=== PATIENT | female | born 1945 | race Caucasian/White ===

== ENCOUNTER → 2016-07-23 | Outpatient (CLI) | payer BC ==
[~2016-07-23] MED LIST: FRRG PO; GLUCTAB7 PO; HYDR25TA4 PO; LORA10TA5 PO; MULTTAB58 PO; NCYSR50 PO; NZRCR TOP; OMEG-27 PO; REDCAP2 PO; WARF3TAB PO; [UNRECOGNIZED DRUG - OTHER] TOP
== END | disposition home or self-care (01) ==
LOC: C.PAPS 15:19
PROVIDERS: ATTEND Obstetrics & Gynecology
DX: Z01.419 Encounter for gynecological examination (general) (routine) without abnormal findings (principal)

== ENCOUNTER → 2016-08-29 | Outpatient (CLI) | payer BC ==
--- NOTE | 2016-08-29 13:04 | MAMMOGRAPHY REPORT ---
BILATERAL DIGITAL SCREENING MAMMOGRAM WITH CAD: 08/29/2016 CLINICAL HISTORY: Routine screening. TECHNIQUE: Bilateral CC and MLO views were obtained. Current study was also evaluated with a Compute r Aided Detection (CAD) system. COMPARISON: Comparison is made to exams dated: 08/17/2015 mammogram, 08/04/2014 mammogram, 06/29/2013 ma mmogram, 04/21/2012 mammogram, 04/13/2011 mammogram, and 04/11/2010 mammogram - [facility]. BREAST COMPOSITION: The tissue of both breasts is heterogeneously dense, which may obscure small mas ses. FINDINGS: An 8 mm asymmetry in the far superior right breast on the MLO view appears very similar on all available prior mammograms dating back to at least 02/27/2007, therefore likely benign. There ar e a few scattered stable benign-appearing round microcalcifications in the breasts. No new suspiciou s mass, architectural distortion or cluster of microcalcifications is seen. IMPRESSION: ACR BI-RADS CATEGORY 1: NEGATIVE There is no mammographic evidence of malignancy. A 1 year screening mammogram is recommended. The pa tient will receive written notification of the results. Approximately 10% of breast cancers are not detected with mammography. A negative mammographic report should not delay biopsy if a clinically suggestive mass is present. Pennie Anaya M.D. ay/:08/29/2016 12:43:54 Director Market Intelligence: Huy VELÁZQUEZ)(Ema), [facility] letter sent: Normal 1/2 BI-RADS Code: ACR BI-RADS Category 1: Negative
== END | disposition home or self-care (01) ==
LOC: C.MAMM 11:49
PROVIDERS: ATTEND Obstetrics & Gynecology
DX: Z12.31 Encounter for screening mammogram for malignant neoplasm of breast (principal)

== ENCOUNTER → 2016-10-28 | Outpatient (CLI) | payer BC ==
[2016-10-28 13:55] LABS: BASO % 0.3 %; BASO ABS # 0.03 K/uL (0-0.2); COMPLETE YES; EOS % 1.2 %; HEMATOCRIT 39.9 % (37-47); IG% 0.3 %; LYMPH % 17.5 %; LYMPH ABS # 1.81 K/uL (1.2-3.4); MEAN CELL VOLUME 86.2 fL (80-100); MEAN CORPUSCULAR HEMOGLOBIN 29.6 pg (25-34); MEAN CORPUSCULAR HGB CONC 34.3 g/dl (32-36); MEAN PLATELET VOLUME 10.9 fL (7.4-10.4); MONO % 8.1 %; NEUT % 72.6 %; PLATELET COUNT 192 K/uL (130-400); RED BLOOD COUNT 4.63 M/uL (4.2-5.4); WHITE BLOOD COUNT 10.33 K/uL (4.8-10.8)
[2016-10-28 14:19] LABS: ALT/SGPT 20 U/L (12-78); AST/SGOT 10 U/L (15-37); BLOOD UREA NITROGEN 18 mg/dl (7-18); BUN/CREATININE RATIO 18.3 (10-20); CALCIUM 9.2 mg/dl (8.5-10.1); CARBON DIOXIDE 30 mmol/L (21-32); CHLORIDE 104 mmol/L (98-107); CREATININE 0.96 mg/dl (0.60-1.20); GLUCOSE 89 mg/dl (70-99); SODIUM 139 mmol/L (136-145)
[2016-10-28 14:22] LABS: ALB/GLOB RATIO 0.7 (0.9-2); ALKALINE PHOSPHATASE 90 U/L (45-117)
--- NOTE | 2016-10-28 14:55 | DIAGNOSTIC IMAGING REPORT ---
PELVIS NO IV/ORAL CONT (CT) HISTORY: 71 years-old Female acute left lower quadrant abdominal pain COMPARISON: None available TECHNIQUE: Multiple axial CT images of the pelvis were obtained without contrast. A dose lowering technique was used consistent with the principals of ADILSON. FINDINGS: There is asymmetric wall thickening of the left aspect urinary bladder lumen. Uterus appears age appropriate. Adnexa are unremarkable. There is moderate wall thickening of the mid sigmoid colon circumferentially with inflammation extending around multiple diverticular tics. There is moderate associated inflammation of the adjacent mesocolon with thickening of the peritoneal reflections. There is no evidence of associated abscess or perforation at this time. The terminal ileum and appendix appear normal. Soft tissues are unremarkable. Discogenic degeneration with annular disc bulging is seen at L5-S1. There is facet arthropathy of the lower lumbar spine. IMPRESSION: 1. Findings compatible with acute uncomplicated sigmoid diverticulitis with moderate associated inflammation within the adjacent mesocolon. 2. Asymmetric thickening of the urinary bladder wall on the left is likely reactive. Correlate with urinalysis to exclude cystitis. The above report was generated using voice recognition software. It may contain grammatical, syntax or spelling errors. Electronically signed by: Woody Hilton M.D. 10/28/2016 2:54 PM Dictated Date/Time: 10/28/2016 2:50 PM
== END | disposition home or self-care (01) ==
LOC: C.LAB 13:19
PROVIDERS: ATTEND Student in an Organized Health Care Education/Training Program
DX: R10.32 Left lower quadrant pain (principal)

== ENCOUNTER 2022-02-09 08:14 | Observation (INO) ==
--- NOTE | 2022-01-29 11:47 | PAT Medication Instructions ---
Medication Instructions Date of Service January 29, 2022 Home Medications aspirin 81 mg tablet,delayed release 81 mg PO QAM atorvastatin 10 mg tablet 10 mg PO HS taglueudthl-aclbafwox-fwk C-Mn 500 mg-400 mg capsule (Glucosamine Chondroitin Maximum Strength) 2 cap PO QAM ibuprofen 200 mg tablet 200 mg PO Q6H PRN loratadine 10 mg tablet 10 mg PO QAM multivitamin 1 tab PO QAM Vitamin D3 1 cap PO QAM amoxicillin 500 mg tablet 2,000 mg PO UD betamethasone dipropionate 0.05 % topical cream 1 applic topical BID PRN escitalopram oxalate 5 mg tablet 5 mg PO QAM estradiol 0.01% (0.1 mg/gram) vaginal cream 1 g vaginal Q3D metronidazole 1 % topical cream 1 applic topical BID valacyclovir 500 mg tablet (Valtrex) 1,000 mg PO BID PRN Continue as directed amoxicillin 500 mg tablet 2,000 mg PO UD ASK your surgeon for instructions ibuprofen 200 mg tablet 200 mg PO Q6H PRN ASK your prescriber and surgeon aspirin 81 mg tablet,delayed release 81 mg PO QAM STOP taking 2 weeks before surgery vcivjcorldi-lkfrhjrwr-fyn C-Mn 500 mg-400 mg capsule (Glucosamine Chondroitin Maximum Strength) 2 cap PO QAM STOP taking 24 hours before surgery betamethasone dipropionate 0.05 % topical cream 1 applic topical BID PRN estradiol 0.01% (0.1 mg/gram) vaginal cream 1 g vaginal Q3D metronidazole 1 % topical cream 1 applic topical BID DO NOT take the morning of surgery loratadine 10 mg tablet 10 mg PO QAM multivitamin 1 tab PO QAM Vitamin D3 1 cap PO QAM Take morning of surgery With a small sip of water, OTHERWISE NOTHING TO EAT OR DRINK AFTER MIDNIGHT: escitalopram oxalate 5 mg tablet 5 mg PO QAM valacyclovir 500 mg tablet (Valtrex) 1,000 mg PO BID PRN(if needed) Take evening before surgery atorvastatin 10 mg tablet 10 mg PO HS valacyclovir 500 mg tablet (Valtrex) 1,000 mg PO BID PRN Other Notes If you have any questions please call us at [phone] or [phone] or [phone] or [phone]
--- NOTE | 2022-02-01 14:19 | Anesthesiology Consultation ---
Date of Service February 01, 2022 Assessment & Plan (1) Encounter for pre-operative examination: - pt/family concern dehydration, requesting drinking water up to 8 hours prior to surgery: Case discussed in detail with Dr. Gutierrez who advised pt needs to remain NPO from midnight before surgery on, and pt to notify pre-op team upon presenting to hospital for surgery, they can administer additional IV fluid which will be more efficacious than oral intake, avoid sleep reduction and issue if surgery time is changed, which will also assist optimization for shahana- operative course. He advised no further evaluation or testing needed prior to surgery. Pt made aware, she states will discuss above to pre-op team, expressed appreciation for call and denied additional questions or concerns. - anesthesia complication: see above under anesthesia problem from 2013 and concern for arrhythmias suspected to be combination effect of fentanyl and opioids. Pt and daughter state were advised at that time suspicion dehydration was an additional component. - potential difficult intubation: limited cervical spine extension. Chart Review Chart Review: Acceptable Risk for Surgery and Patient seen in Pre Admission Testing Teaching & Discussion Pre-Anesthesia Teaching/Discussion Notes: Instructed NPO after midnight before surgery, except medications with 15 cc of water. Medication instructions provided according to the PAT guidelines. History Surgery Operation Date: 02/09/22 12:00 Proposed Procedures p Anterior Colporrhaphy, Insertion of Cystocath - Imer Marshall MD Height/Weight Height: 5 ft 6 in Weight: 66.224 kg Allergies Allergy/AdvReac Type Severity Reaction Status Date / Time formaldehyde Allergy Unknown Rash Verified 01/30/22 13:43 shellfish derived Allergy Unknown N/V Verified 01/30/22 13:43 tixocortol Allergy Unknown Rash Verified 01/30/22 13:43 Medications Home Medications Medication Instructions Recorded Confirmed Last Taken aspirin 81 mg tablet,delayed 81 mg PO QAM 11/18/20 01/29/22 11/18/20 release atorvastatin 10 mg tablet 10 mg PO HS 11/18/20 01/29/22 11/17/20 ntuntrhvfxh-lvbtkfjgd-zdj C-Mn 500 2 cap PO QAM 11/18/20 01/29/22 Unknown mg-400 mg capsule (Glucosamine Chondroitin Maximum Strength) ibuprofen 200 mg tablet 200 mg PO Q6H PRN Pain 11/18/20 01/29/22 11/18/20 07:00 200 mg loratadine 10 mg tablet 10 mg PO QAM 11/18/20 01/29/22 11/18/20 multivitamin 1 tab PO QAM 11/18/20 01/29/22 11/18/20 Vitamin D3 1 cap PO QAM 01/29/22 01/29/22 Unknown amoxicillin 500 mg tablet 2,000 mg PO UD 01/29/22 01/29/22 Unknown betamethasone dipropionate 0.05 % 1 applic topical BID PRN eczema 01/29/22 01/29/22 Unknown topical cream escitalopram oxalate 5 mg tablet 5 mg PO QAM 01/29/22 01/29/22 Unknown estradiol 0.01% (0.1 mg/gram) 1 g vaginal Q3D 01/29/22 01/29/22 Unknown vaginal cream metronidazole 1 % topical cream 1 applic topical BID 01/29/22 01/29/22 Unknown valacyclovir 500 mg tablet 1,000 mg PO BID PRN Cold Sores 01/29/22 01/29/22 Unknown (Valtrex) Past Medical History Medical History (Updated 02/02/22 @ 09:15 by Melvi Chisholm PA-C) Anxiety Cystocele Diverticulosis hx diverticulitis 18 yrs ago Eczema GERD (gastroesophageal reflux disease) rare, prn antacid History of COVID-19 Late August/early September 2021 (home test), symptoms at time: insomnia, anxiety, memory loss > resolved (w/lexapro) Hx of seasonal allergies Hyperlipidemia Hypertension in past during stressful events, medications d/c 5 yrs ago Potential difficult airway on pre-intubation assessment limited cervical spine extension ROM Patient denies h/o stroke, seizures, heart attack, heart failure, DM, blood clots or blood transfusions. Exercise / Class Metabolic Activity II 4-5 Yardwork/Stairs/Walk up hill (denies CP or SOB with 1 FOS) Past Surgical History Surgical History History of anesthesia problem Patient had Left TKA done 04/10/13 at [facility]. Post-op cardio consult- per note 04/11/13, patient had post anesthesia/surgery first degree AVB, [place] and 3 second pause. "Likely all this is related to Fentanyl and narcotics.. At this point I do not believe a pacemaker is indicated.. I would avoid beta blockers at this point.. The other possibility is some degree of sleep apnea contributing. She does not that she snores, but denies significant daytime somnolence." Cardiology progress note on 04/12/13, "Nothing on monitor over last 24 hours.. NE looks back to baseline.. No hx syncope.. OR record reviewed--just propofol and versed with spinal.. ok to floor--will arrange outpatient monitor for one month upon d/c" History of left knee replacement History of repair of rectocele Hx of cataract extraction R/L Hx of colonoscopy Hx of hernia repair Hx of total hysterectomy with removal of both tubes and ovaries Past Anesthesia History No Family Hx of Anesthesia Complications and Other (see above anesthesia complication) History of PONV No Hx of PONV and No Hx of Motion Sickness Social History Smoking Status: Never smoker Do You Dip or Chew Tobacco: No Hx Alcohol Use: No Hx Substance Use: No substance use type: does not use Review of Systems Denies snoring or witnessed apneas. Patient denies chest pain, shortness of breath, dyspnea on exertion, fever, chills, cough, wheezing, presyncope or palpitations. Physical Exam Vital Signs Vitals BP 142/81 P 65 TEMP 98.3 SP02 99% on RA RESP 18 Physical Mild limitation of cervical extension range of motion without pain TMD 3.5 finger breadths Mallampati Score 2 Dentition: intact, several crowns; denies chipped or loose teeth, Lungs: normal respiratory effort. Clear throughout to auscultation, no adventitious breath sounds Cardiac: regular rate and rhythm, no murmurs noted Carotid arteries: negative bruit bilat Lab Results Anesthesia Preop Results Results Anesthesia Widget: WBC 7.38 K/ul (4.8-10.8) 02/01/22 Hgb 13.3 g/dl (12.0-16.0) 02/01/22 Hct 39.2 % (34.1-44.9) 02/01/22 Plt K/uL (130-400) 02/01/22 PT 10.9 Seconds (9.0-12.0) 02/01/22 PTT 25.5 Seconds (21.0-31.0) 02/01/22 INR 1.0 (0.9-1.1) 02/01/22 Blood Type A Positive 02/01/22 Antibody Screen NEGATIVE 02/01/22 Testing Laboratory Results 12/29/2021 SODIUM: 139 POTASSIUM: 4.2 CHLORIDE: 104 CO2: 29 BUN: 25 CREATININE: 1.05 GLUCOSE: 102 Electrocardiogram Date: 02/01/22 NSR, rate 61 bpm COVID-19 Risk Screen Screening Information COVID-19 Screen Date: 02/01/22 Exposure 21 Days Family/Household +COVID Last 21 Days: No Exposure 10 Days Any COVID Exposure Last 10 Days: No Symptoms Last 10 Days Experienced COVID Sx Last 10 Days: No + COVID 0-90 Days COVID + in Last 0-90 Days: No
[~2022-02-09 08:14] MED LIST changes: -FRRG PO; -GLUCTAB7 PO; -HYDR25TA4 PO; +LACTATED RINGER'S 1,000 ML IV SCH; +LIDOCAINE 2% MPF LOCAL 5 ML VIAL INFIL ONE; -LORA10TA5 PO; +LR 15ML/HR IV SCH; -MULTTAB58 PO; -NCYSR50 PO; -NZRCR TOP; -OMEG-27 PO; +ONDANSETRON INJ 2 MG/ML 2 ML VIAL ONE; +PROPOFOL IV EMULSION 10 MG/ML 20 ML VIAL IV ONE; -REDCAP2 PO; -WARF3TAB PO; -[UNRECOGNIZED DRUG - OTHER] TOP; +cefOXitin 2,000 MG in DEXTROSE 5% 50 ML IV SCH; +fentaNYL citrate 100 MCG/2 ML VIAL ONE
--- NOTE | 2022-02-09 09:10 | History & Physical Bridge Note ---
Date of Service February 09, 2022 History & Physical Bridge Note I have examined the patient, reviewed the History & Physical and in the interval since the performance of the History & Physical I have noted the following changes of clinical significance: no changes noted
[2022-02-09] MEDS ORDERED: MoRPHine SULFATE PF 1 MG/ML 10 ML AMP/VIAL ONE (09:20)
[2022-02-09] MEDS ORDERED: LIDOCAINE 1%/EPINEPHRINE 1:100,000 50 ML VIAL ONE (09:24)
[2022-02-09] MEDS ORDERED: NEOMYCIN/POLYMYX/BACITR OINT 15 GM TUBE ONE (09:34)
[2022-02-09] MEDS ORDERED: PREMARIN VAG CRM 14 APPLN/30 GM TUBE ONE (09:36)
[2022-02-09] MEDS ORDERED: NALOXONE HCL 0.08 MG in SYRINGE 1.8 ML IV PRN (09:40)
[2022-02-09] MEDS ORDERED: NALOXONE HCL 0.4 MG/1 ML VIAL/CARP IV PRN (09:40)
[2022-02-09] MEDS ORDERED: ONDANSETRON INJ 2 MG/ML 2 ML VIAL IV PRN (09:40)
[2022-02-09] MEDS ORDERED: diphenhydrAMINE 50 MG/ML VIAL IV PRN (09:40)
[2022-02-09] MEDS ORDERED: LACTATED RINGER'S 500 ML IV PRN (09:40)
[2022-02-09] MEDS ORDERED: MoRPHine SULFATE PF 1 MG/ML 10 ML AMP/VIAL INT SPINAL ONE (09:40)
[2022-02-09] MEDS ORDERED: ePHEDrine sulfate 50 MG/ML AMP IV PRN (09:40)
[2022-02-09] MEDS ORDERED: MEPERIDINE HCL 25 MG/ML CARP/VIAL IV PRN (09:40)
[2022-02-09] MEDS ORDERED: NALOXONE HCL 1 MG in SODIUM CHLORIDE 0.9% 1000ML 1,000 ML IV PRN (09:40)
[2022-02-09] MEDS ORDERED: NALBUPHINE HCL INJ 10 MG/ML AMP IV PRN (09:40)
[2022-02-09] MEDS ORDERED: SODIUM CHLORIDE 0.9% 1000ML 1,000 ML IV SCH (09:45)
[2022-02-09] MEDS ORDERED: NO NARCOTICS OR SEDATIVES SCH (09:45)
[2022-02-09] MEDS ORDERED: ROCURONIUM BROMIDE 10 MG/ML 5 ML VIAL IV ONE (10:14)
[2022-02-09] MEDS ORDERED: DEXAMETHASONE SOD INJ 4 MG/ML VIAL ONE (10:14)
[2022-02-09] MEDS ORDERED: ePHEDrine sulfate 50 MG/ML AMP ONE (11:27)
[2022-02-09] MEDS ORDERED: GLYCOPYRROLATE 0.2 MG/ML VIAL ONE (11:41)
[2022-02-09] MEDS ORDERED: NEOSTIGMINE METHYLSULFATE 1 MG/ML 10ML VIAL ONE (11:41)
[2022-02-09] MEDS ORDERED: fentaNYL citrate 100 MCG/2 ML VIAL ONE (11:43)
--- NOTE | 2022-02-09 11:56 | Post Operative Brief Note ---
Immediate Post Op Note v1 Date of Surgery February 09, 2022 Pre & Post Diagnosis Operation Date: 02/09/22 09:40 Pre-Op Diagnosis: Cystocele Post-Op Diagnosis: Cystocele I identified the patient and participated in the time-out.: Yes Procedure Operation Date: 02/09/22 09:40 Actual Procedures p Anterior Colporrhaphy, Insertion of Cystocath, repair of bladder. - Imer Marshall MD Surgeon Imer Marshall MD Forging Die Finisher none Estimated Blood Loss 30 Findings Consistent with Post-Op Diagnosis Drains Suprapubic Catheter Anesthesia Type General
--- NOTE | 2022-02-09 12:57 | Operative Report (OR) ---
DATE OF PROCEDURE: 02/09/2022. PROCEDURE PERFORMED: This is an operative notation of a cystocele repair, insertion of suprapubic ca theter. INDICATIONS FOR SURGERY: Mass protruding from the vagina on coughing, sneezing or straining. PREOPERATIVE DIAGNOSIS: Symptomatic cystocele. POSTOPERATIVE DIAGNOSIS: Symptomatic cystocele. Pathology pending. SURGEON: Kevin Marshall MD. ESTIMATED BLOOD LOSS: 30 mL. ANESTHESIA: General with spinal narcotics. OPERATIVE FINDING AND PROCEDURE: The patient was brought to the OR table. She had spinal narcotics placed. She was then placed under general anesthesia. A vaginal prep was done with Betadine preppin g the vagina, perineum, and suprapubic area. The procedure was started by grasping the anterior vagi na, a centimeter from the external urethral meatus with an Allis and then infiltrating the midline of the bladder right up to the vaginal cuff. There was a lot of redundant bladder due to the cystocele . After the area was infiltrated with local with epinephrine, I used a knife to make an initial inci dee dee and then used the Baby Simran to dissect the bladder off the anterior vaginal mucosa and this diss ection was taken right up to the vaginal cuff, which could be identified by the dimples on either alejandro e. Following this, I used T clamps to dissect off the anterior vaginal mucosa. I did a thin dissect ion, removing just a thin layer of anterior vaginal mucosa from the external urethral meatus right up to the cuff on the right side, the left side. Then, I dissected around the bladder neck into the sp inal area of the pelvis. I then plicated the excess vaginal mucosa with interrupted fvlpux-hn-kbszs sutures of Vicryl. This started a centimeter from the external urethral meatus and went right down t o the cuff. We then did a second layer and this reduced most of the hernia sac. We made sure that t he hernia sac was completely closed at the top and also well anchored to the posterior vaginal mucosa at the top. I then used additional support to support the urethrovesical angle first by using heavy chromic and going out lateral on the patient's left side and then on the right side and then pulling para vaginal tissue under the urethrovesical angle and tying it together in a U-stitch. I then bols tered this with a mattress suture of chromic catgut at the same level. Then, I excised the excess va ginal mucosa and approximated the vaginal mucosal edges with qgjqii-ct-srqjo sutures of Vicryl. This was done right to the cuff. I got a good repair. I then emptied the bladder of the 300 mL of clear urine. I then reinstilled about 420 mL of urine. I entered the bladder with a suprapubic trocar, r emoved the trocar and then inserted a suprapubic catheter inserted to the anterior abdomen with a hea vy silk suture connected to gravity drainage. I then went back and removed 350 mL from the bladder. Following this, hemostasis was good. I also used half a jar of 1-inch packing to pack the vagina an d to give support to the urethrovesical angle. Following this, patient tolerated the procedure well and left the OR in good condition. Job ID: [id number]
--- NOTE | 2022-02-09 13:05 | Anesthesiology Progress Note ---
Date of Service February 09, 2022 Anesthesia Post Procedure Vital Signs Vital Signs: Temp Pulse Pulse Resp BP Pulse Ox O2 Del Method 02/09/22 13:04 97.7 F 63 17 157/64 H 96 Room Air 02/09/22 12:55 63 12 151/57 H 97 Room Air 02/09/22 12:45 65 15 155/66 H 98 Room Air 02/09/22 12:35 72 16 164/60 H 96 Room Air 02/09/22 12:25 71 17 166/59 H 100 Oxymask 02/09/22 12:15 72 12 174/64 H 100 Oxymask 02/09/22 12:08 97.9 F 78 15 176/64 H 100 Oxymask 02/09/22 08:41 97.9 F 63 18 178/78 H 99 Room Air O2 Flow Rate 02/09/22 13:04 02/09/22 12:55 02/09/22 12:45 02/09/22 12:35 02/09/22 12:25 4 02/09/22 12:15 6 02/09/22 12:08 6 02/09/22 08:41 Transfer of Care Handoff Completed per policy Notes Mental Status: alert / awake / arousable and participated in evaluation Patient Amnestic to Procedure: Yes Nausea / Vomiting: adequately controlled Pain: adequately controlled Airway Patency, RR, SpO2: stable & adequate BP & HR: stable & adequate Hydration State: stable & adequate Anesthetic Complications: no major complications apparent and Pt Satisfied with anesthetic care
[2022-02-09] MEDS ORDERED: KETOROLAC 30 MG/ML VIAL ONE (13:06)
[2022-02-09] MEDS ORDERED: KETOROLAC 30 MG/ML VIAL IV PRN (14:52)
[2022-02-09] MEDS ORDERED: bisacodyL 10 MG SUPP PR PRN (14:52)
[2022-02-09] MEDS ORDERED: MAGNESIUM HYDROXIDE SUSP 30 ML UDC PO PRN (14:52)
[2022-02-09] MEDS ORDERED: SENNA 8.6 MG TAB PO PRN (14:52)
[2022-02-09] MEDS ORDERED: IBUPROFEN 600 MG TAB PO PRN (14:52)
[2022-02-09] MEDS: D5W AND LACTATED RINGERS 1,000 ML IV SCH ×2 (16:01→23:59)
[2022-02-10] MEDS ORDERED: DC INTRASPINAL MORPHINE SCH (03:40)
[2022-02-10] MEDS ORDERED: oxyCODONE/ACETAMINOPHEN 5mg/325mg TAB PO PRN (03:42)
[2022-02-10] MEDS ORDERED: ONDANSETRON INJ 2 MG/ML 2 ML VIAL IV PRN (03:42)
[2022-02-10] MEDS ORDERED: PROMETHAZINE HCL 25 MG in SODIUM CHLORIDE 0.9% 50 ML IV PRN (03:42)
[2022-02-10] MEDS ORDERED: MEPERIDINE HCL 50 MG/ML CARP IV PRN (03:42)
--- NOTE | 2022-02-10 08:31 | Obstetrical Progress Note ---
Date of Service February 10, 2022 Assessment & Plan Admission and Anticipated Discharge Date Admission Date: February 09, 2022 Subjective abdomen soft and non tender passing gas no calf tenderness urine clear output good vaginal bleeing scant hgb Results & Data ([facility]) Vital Signs (Past 12 Hours) Vital Signs Temp Pulse Resp BP Pulse Ox O2 Del Method 02/10/22 04:00 36.6 C 66 18 133/59 L 96 Room Air 02/10/22 04:00 18 96 02/10/22 02:58 18 96 02/10/22 02:05 16 95 02/10/22 00:00 36.8 C 71 16 141/58 H 96 Room Air 02/10/22 01:07 16 95 02/10/22 00:00 16 96 02/09/22 23:02 16 95 02/09/22 22:01 16 95 02/09/22 21:00 16 95
[2022-02-10] MEDS: MULTIVITAMIN CHEWABLE TAB PO SCH (09:04)
[2022-02-10] MEDS: ESCITALOPRAM OXALATE 10 MG TAB PO SCH (09:05)
[2022-02-10] MEDS: CHOLECALCIFEROL 1,000 UNITS 25 MCG TAB PO SCH (09:05)
[2022-02-11] MEDS: CHOLECALCIFEROL 1,000 UNITS 25 MCG TAB PO SCH (07:29)
[2022-02-11] MEDS: MULTIVITAMIN CHEWABLE TAB PO SCH (07:29)
[2022-02-11] MEDS: ESCITALOPRAM OXALATE 10 MG TAB PO SCH (07:29)
--- NOTE | 2022-02-11 10:08 | Obstetrical Progress Note ---
Date of Service February 11, 2022 Assessment & Plan Admission and Anticipated Discharge Date Admission Date: February 09, 2022 Subjective abdomen soft and non tender passing flatus no calf tenderness ambulating well urine clear output good vaginal packing removed Results & Data ([facility]) Vital Signs (Past 12 Hours) Vital Signs Temp Pulse Resp BP BP Pulse Ox O2 Del Method 02/11/22 07:15 36.6 C 80 18 176/72 H 177/75 H 96 Room Air 02/10/22 23:20 36.9 C 71 18 139/61 96 Room Air
[2022-02-12] MEDS: CHOLECALCIFEROL 1,000 UNITS 25 MCG TAB PO SCH (09:01)
[2022-02-12] MEDS: ESCITALOPRAM OXALATE 10 MG TAB PO SCH (09:02)
[2022-02-12] MEDS: MULTIVITAMIN CHEWABLE TAB PO SCH (09:03)
--- NOTE | 2022-02-12 12:12 | Obstetrical Progress Note ---
Date of Service February 12, 2022 Assessment & Plan Admission and Anticipated Discharge Date Admission Date: February 09, 2022 Subjective abdomen soft and non tender urine out put good voiding well ambulating well no calf tenderness vaginal bleeding scant hgb 13.3 Results & Data ([facility]) Vital Signs (Past 12 Hours) Vital Signs Temp Pulse Resp BP Pulse Ox O2 Del Method 02/12/22 07:50 36.7 C 74 18 147/75 H 99 Room Air
--- NOTE | 2022-02-12 23:59 | Discharge Summary (DS) ---
HOSPITAL COURSE: She is a 76-year-old 4, para 4, status post CONSUELO-BSO, inguinal hernia repair and status post rectocele repair. She has a mass protruding from her vagina on coughing, sneezing o r straining, present for well over 6 months, getting progressively worse, associated with some stress incontinence. She was admitted to the hospital for repair of a symptomatic cystocele and insertion of suprapubic catheter. On the day of admission, she was given prophylactic antibiotics, [facility] she underwent an anterior colporrhaphy and an insertion of suprapubic Cystocath along with vaginal packing. The following day, she was passing gas and tolerating a regular diet. The packing was left in for 2 days. On the second postoperative day, it was removed. Vaginal discharge was sca nt. Her preoperative hemoglobin was 13, postoperative hemoglobin was 13. Her urine output was alway s good. Her urine was always clear, was never blood-tinged. She remained afebrile, and on the third postoperative day, she was ambulating well, eating well. She was starting to void on her own and brina was discharged with the catheter in place. She was given catheter instructions, told to call the o ffice if she had a temperature over 100 or any heavy bleeding, to keep track of her voiding amounts a nd residuals, and then after 2 days with residuals under 100, she could call and I would remove the cheikh pal in the office. Job ID: [id number]
== END 2022-02-12 15:00 | disposition home or self-care (01) ==
LOC: ASU 08:14 → 4E1 12:09 → INTOOBSV 12:09
PROC: M.APREP (2022-02-09 09:40)

== ENCOUNTER 2023-04-19 09:04 | Observation (INO) ==
--- NOTE | 2023-04-01 09:18 | PAT Medication Instructions ---
Medication Instructions Date of Service April 01, 2023 Home Medications Medication Instructions Recorded Casey Segura #1 ea 03/25/23 aspirin 81 mg tablet,delayed release 81 mg PO QAM atorvastatin 10 mg tablet 10 mg PO HS byiguhrtpya-qedhaaqnm-sgd C-Mn 500 mg-400 mg capsule (Glucosamine Chondroitin Maximum Strength) 2 cap PO QAM ibuprofen 200 mg tablet 200 mg PO Q6H PRN loratadine 10 mg tablet 10 mg PO QAM multivitamin 1 tab PO QAM amoxicillin 500 mg tablet 2,000 mg PO UD betamethasone dipropionate 0.05 % topical cream 1 applic topical BID PRN escitalopram oxalate 5 mg tablet 10 mg PO QAM estradiol 0.01% (0.1 mg/gram) vaginal cream 1 g vaginal .2XW metronidazole 1 % topical cream 1 applic topical BID PRN valacyclovir 500 mg tablet (Valtrex) 1,000 mg PO BID PRN cholecalciferol (vitamin D3) 25 mcg (1,000 unit) capsule 0 mcg PO DAILY Continue as directed amoxicillin 500 mg tablet 2,000 mg PO UD ASK your surgeon for instructions ibuprofen 200 mg tablet 200 mg PO Q6H PRN ASK your prescriber and surgeon aspirin 81 mg tablet,delayed release 81 mg PO QAM STOP taking 2 weeks before surgery (or as soon as possible if surgery is within 2 weeks) hjpbqtcxxui-dfgwgzuqw-lwn C-Mn 500 mg-400 mg capsule (Glucosamine Chondroitin Maximum Strength) 2 cap PO QAM STOP taking 24 hours before surgery betamethasone dipropionate 0.05 % topical cream 1 applic topical BID PRN estradiol 0.01% (0.1 mg/gram) vaginal cream 1 g vaginal .2XW metronidazole 1 % topical cream 1 applic topical BID PRN DO NOT take the morning of surgery loratadine 10 mg tablet 10 mg PO QAM multivitamin 1 tab PO QAM cholecalciferol (vitamin D3) 25 mcg (1,000 unit) capsule 0 mcg PO DAILY Take morning of surgery With a small sip of water, OTHERWISE NOTHING TO EAT OR DRINK AFTER MIDNIGHT: escitalopram oxalate 5 mg tablet 10 mg PO QAM valacyclovir 500 mg tablet (Valtrex) 1,000 mg PO BID PRN(if needed) Take evening before surgery atorvastatin 10 mg tablet 10 mg PO HS valacyclovir 500 mg tablet (Valtrex) 1,000 mg PO BID PRN(if needed) Other Notes If you have any questions please call us at [phone] or [phone] or [phone] or [phone]
--- NOTE | 2023-04-04 09:48 | Anesthesiology Consultation ---
Date of Service April 04, 2023 Assessment & Plan (1) Encounter for pre-operative examination: Chart Review Chart Review: Acceptable Risk for Surgery and Patient seen in Pre Admission Testing - Patient is NOT an ideal OPJ candidate due to age and previous anesthesia issues Anesthesia complication: see anesthesia problem in PMH from 2013 and concern for arrhythmias suspected to be combination effect of fentanyl and opioids. Pt and daughter state were advised at that time suspicion dehydration was an additional component. Pt/family concern dehydration, states with surgery 02/2022- she was given additional IV fluid preoperatively and tolerated procedure well. Per PAT appt on 04/04/23, no recent illness/disease exposures, illness related symptoms, or recent illness/disease positive tests. Will leave to surgeon's discretion if preop Covid testing needed Anterior colporrhaphy; repair of bladder 02/09/22= Done under GA with Grade 1 view with Glidescope #3 (cords clear), ETT #7.0. Atraumatic glidescope intubation x 1 Teaching & Discussion Pre-Anesthesia Teaching/Discussion Notes: Instructed NPO after midnight before surgery,except medications with 15 cc of water. Medication instructions provided according to the PAT guidelines. History Surgery Operation Date: 04/19/23 08:50 Proposed Procedures p Right Total Knee Arthroplasty - Mars Aguilar MD Height/Weight Height: 5 ft 6 in Weight: 66.678 kg Allergies Allergy/AdvReac Type Severity Reaction Status Date / Time formaldehyde Allergy Unknown Rash Verified 03/29/23 13:51 shellfish derived Allergy Unknown N/V Verified 03/29/23 13:51 tixocortol Allergy Unknown Rash Verified 03/29/23 13:51 Medications Home Medications Medication Instructions Recorded Confirmed Last Taken aspirin 81 mg tablet,delayed 81 mg PO QAM 11/18/20 03/29/23 02/02/22 06:30 release atorvastatin 10 mg tablet 10 mg PO HS 11/18/20 03/29/23 02/08/22 21:00 [id number] C-Mn 500 2 cap PO QAM 11/18/20 03/29/23 02/08/22 06:30 mg-400 mg capsule (Glucosamine Chondroitin Maximum Strength) ibuprofen 200 mg tablet 200 mg PO Q6H PRN Pain 11/18/20 03/29/23 11/18/20 07:00 200 mg loratadine 10 mg tablet 10 mg PO QAM 11/18/20 03/29/23 02/08/22 06:30 multivitamin 1 tab PO QAM 11/18/20 03/29/23 02/08/22 06:30 amoxicillin 500 mg tablet 2,000 mg PO UD 01/29/22 03/29/23 Unknown betamethasone dipropionate 0.05 % 1 applic topical BID PRN eczema 01/29/22 03/29/23 Unknown topical cream escitalopram oxalate 5 mg tablet 10 mg PO QAM 01/29/22 03/29/23 02/09/22 06:30 estradiol 0.01% (0.1 mg/gram) 1 g vaginal .2XW 01/29/22 03/29/23 02/06/22 22:00 vaginal cream metronidazole 1 % topical cream 1 applic topical BID PRN Skin 01/29/22 03/29/23 02/08/22 06:30 Irritation valacyclovir 500 mg tablet 1,000 mg PO BID PRN Cold Sores 01/29/22 03/29/23 02/07/22 19:00 (Valtrex) cholecalciferol (vitamin D3) 25 0 mcg PO DAILY 12/20/22 03/29/23 Unknown mcg (1,000 unit) capsule Wheeled Walker #1 ea 03/25/23 Unknown Past Medical History Medical History (Updated 04/04/23 @ 10:40 by Verito Wolf PA-C) Anxiety Diverticulosis hx diverticulitis around 2003 Eczema GERD (gastroesophageal reflux disease) rare, prn antacid History of COVID-19 - Late August/early September 2021 (home test), symptoms at time: insomnia, anxiety, memory loss > resolved (w/lexapro) - After 2022- tested Covid positive with home test- nasal congestion and fatigue- fully resolved Hx of seasonal allergies Hyperlipidemia Hypertension in past during stressful events, medications d/c 2017 Lumbar spondylosis Exercise / Class Metabolic Activity II 4-5 Yardwork/Stairs/Walk up hill (one flight of stairs - no chest pain or SOB ) Past Surgical History Surgical History (Updated 04/04/23 @ 15:43 by Verito Wolf PA-C) History of anesthesia problem - Patient had Left TKA done 04/10/13 at [facility]. - Post-op cardio consult- per note 2/8/14, patient had post anesthesia/surgery first degree AVB, [place] and 3 second pause. "Likely all this is related to Fentanyl and narcotics.. At this point I do not believe a pacemaker is indicated.. I would avoid beta blockers at this po int.. The other possibility is some degree of sleep apnea contributing. She does not that she snores, but denies significant daytime somnolence." - Cardiology progress note on 04/12/13, "Nothing on monitor over last 24 hours.. MS looks back to baseline.. No hx syncope.. OR record reviewed--just propofol and versed with spinal.. ok to floor--will arrange outpatient monitor for one month upon d/c" (Patient states she did follow up with cardio as outpatient- no further testing needed- discharged from cardio to follow up PRN after several visits) History of anterior colporrhaphy 02/09/22 History of left knee replacement History of repair of rectocele Hx of cataract extraction R/L Hx of colonoscopy Hx of hernia repair Hx of total hysterectomy with removal of both tubes and ovaries Past Anesthesia History No Hx of Anesthesia Complications (with exception to heart issues and possible difficult intubation ) and No Family Hx of Anesthesia Complications (with exception daughter - hypotension and N/V) History of PONV No Hx of PONV and No Hx of Motion Sickness Social History Smoking Status: Never smoker Do You Dip or Chew Tobacco: No Hx Alcohol Use: No Hx Substance Use: No substance use type: does not use Review of Systems Hx of snoring -no hx of sleep study Patient denies chest pain, shortness of breath, dyspnea on exertion, cough, wheezing, palpitations. No hx of seizures, stroke, [place]. No hx of blood clots or blood transfusions Physical Exam Vital Signs VITALS BP 131/71 P 67 TEMP 97.5 SP02 99% RESP 16 Constitutional no acute distress ENMT Mouth: no TMJ clicking Thyromental Distance: > or= 3.5 Finger Breadths (4.0) Mallampati Class: III Crowns to side teeth and molars Neck + limited neck extension (significant ) Respiratory normal respiratory effort; no respiratory distress Auscultation: lungs clear to auscultation bilaterally; no wheezes Cardiovascular Rate/Rhythm: regular rate and regular rhythm Heart Sounds: no murmur Vessels: no carotid bruit Musculoskeletal Spine: + pain with cervical ROM (mild pulling ) Extremities: extremities normal to inspection Psychiatric Orientation: alert Lab Results Anesthesia Preop Results Results Anesthesia Widget: WBC 7.20 K/ul (4.8-10.8) 04/04/23 Hgb 12.2 g/dl (12.0-16.0) 04/04/23 Hct 37.5 % (37.0-47.0) 04/04/23 Plt 121 K/uL (130-400) L 04/04/23 Na 138 mmol/L (136-145) 04/04/23 K 4.0 mmol/L (3.5-5.1) 04/04/23 Cl 102 mmol/L (98-107) 04/04/23 CO2 31 mmol/L (21-32) 04/04/23 BUN 25 mg/dl (6-23) H 04/04/23 Creat 0.93 mg/dl (0.6-1.2) 04/04/23 Glucose Level 94 mg/dl (70-99(Fasting)) 04/04/23 PT 10.7 Seconds (9.0-12.0) 04/04/23 PTT 25 Seconds (21-31) 04/04/23 INR 1.0 (0.9-1.1) 04/04/23 Blood Type A Positive 04/04/23 Antibody Screen NEGATIVE 04/04/23 Testing Electrocardiogram Date: 12/20/22 Findings: + NSR @ (68bpm) Normal EKG per cardio Chest X-Ray Date: 12/20/22 FINDINGS: Cardiomediastinal and hilar silhouettes are unchanged. No pneumothorax, pleural effusion, airspace consolidation or pulmonary edema. Degenerative changes of the shoulders and spine. IMPRESSION: No acute process.
--- NOTE | 2023-04-14 11:11 | History & Physical Report ---
Date of Service April 14, 2023 Assessment & Plan (1) Right knee DJD: 77-year-old female now 10 years out from left knee replacement with advanced right knee arthritis. She is failed conservative measures. She is ready proceed with knee replacement. Plan: Max taken to the operating do a right total knee replacement. The risks and benefits of this procedure were explained the patient include but not limited to DVT, PE, , infection, neurological injury, vascular injury, bleeding problems, pain, limited motion, stiffness, failure relieve her symptoms excetra. The patient understands and desires to proceed. Informed consent is obtained. She is planned to be discharged to home with home health and her family's assistance. Her daughter will be able to assist in her care as well. DVT prophylaxis will be thigh-high teds, SCDs, baby aspirin twice a day. (2) History of left knee replacement: (3) Lumbar spondylosis: History of Present Illness Chief Complaint: . Persistent, progressive right knee pain Primary Care Provider: Luis Hawthorne MD . Patient is a 77-year-old female long-term patient of mine who presents for surgical treatment of her right knee at this time. She is now about 10 years out from a left knee replacement which is done well. She continues to be bothered by progressive right knee pain discomfort. Is been through extensive conservative treatment over the years including injections which become less successful. Is global pain. The more if she is up and onto more it hurts. Limps more as the day goes on. She is ready to have her right knee fixed. Allergies Allergy/AdvReac Type Severity Reaction Status Date / Time formaldehyde Allergy Unknown Rash Verified 03/29/23 13:51 shellfish derived Allergy Unknown N/V Verified 03/29/23 13:51 tixocortol Allergy Unknown Rash Verified 03/29/23 13:51 Home Medications Medication Instructions Recorded Confirmed Type aspirin 81 mg tablet,delayed 81 mg PO QAM 11/18/20 03/29/23 History release atorvastatin 10 mg tablet 10 mg PO HS 11/18/20 03/29/23 History mwnmpmpxplx-ododcncuh-xsx C-Mn 500 2 cap PO QAM 11/18/20 03/29/23 History mg-400 mg capsule (Glucosamine Chondroitin Maximum Strength) ibuprofen 200 mg tablet 200 mg PO Q6H PRN Pain 11/18/20 03/29/23 History loratadine 10 mg tablet 10 mg PO QAM 11/18/20 03/29/23 History multivitamin 1 tab PO QAM 11/18/20 03/29/23 History amoxicillin 500 mg tablet 2,000 mg PO UD 01/29/22 03/29/23 History betamethasone dipropionate 0.05 % 1 applic topical BID PRN eczema 01/29/22 03/29/23 History topical cream escitalopram oxalate 5 mg tablet 10 mg PO QAM 01/29/22 03/29/23 History estradiol 0.01% (0.1 mg/gram) 1 g vaginal .2XW 01/29/22 03/29/23 History vaginal cream metronidazole 1 % topical cream 1 applic topical BID PRN Skin 01/29/22 03/29/23 History Irritation valacyclovir 500 mg tablet 1,000 mg PO BID PRN Cold Sores 01/29/22 03/29/23 History (Valtrex) cholecalciferol (vitamin D3) 25 0 mcg PO DAILY 12/20/22 03/29/23 History mcg (1,000 unit) capsule Wheeled Walker #1 ea 03/25/23 Rx Past Med/Surg History Medical History Lumbar spondylosis Eczema GERD (gastroesophageal reflux disease) rare, prn antacid Hypertension in past during stressful events, medications d/c 2016 Diverticulosis hx diverticulitis around 2003 History of COVID-19 - Late August/early September 2021 (home test), symptoms at time: insomnia, anxiety, memory loss > resolved (w/lexapro) - After 2022- tested Covid positive with home test- nasal congestion and fatigue- fully resolved Hx of seasonal allergies Hyperlipidemia Anxiety Surgical History History of anterior colporrhaphy 02/09/22 History of anesthesia problem - Patient had Left TKA done 04/10/13 at [facility]. - Post-op cardio consult- per note 04/11/13, patient had post anesthesia/surgery first degree AVB, [place] and 3 second pause. "Likely all this is related to Fentanyl and narcotics.. At this point I do not believe a pacemaker is indicated.. I would avoid beta blockers at this point.. The other possibility is some degree of sleep apnea contributing. She does not that she snores, but denies significant daytime somnolence." - Cardiology progress note on 04/12/13, "Nothing on monitor over last 24 hours.. OR looks back to baseline.. No hx syncope.. OR record reviewed--just propofol and versed with spinal.. ok to floor--will arrange outpatient monitor for one month upon d/c" (Patient states she did follow up with cardio as outpatient- no further testing needed- discharged from cardio to follow up PRN after several visits) Hx of total hysterectomy with removal of both tubes and ovaries History of repair of rectocele Hx of hernia repair Hx of colonoscopy Hx of cataract extraction R/L History of left knee replacement Social History Smoking Status: Never smoker Second Hand Exposure: No; Do You Dip or Chew Tobacco: No; Hx Alcohol Use: No Hx Substance Use: No Preferred Language: Slovak Communication Ability: Effective 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 Physical Exam . Physical examination reveals a pleasant elderly female. Looks in pretty good health. Examination of the right knee reveals patient walks with a bit of a stiff knee gait. She got slight varus alignment to her knee. She is tender over the medial joint line. Small knee effusion. Range of motion about 10 degrees short of full extension to 120 degrees of flexion. There is no instability. No pain with hip motion. Examination left knee reveals well-healed incision. No swelling. Range of motion 0-1 20. Constitutional WD/WN, vitals as above Neck trachea midline, no thyromegaly Respiratory normal respiratory effort, lungs clear to auscultation Cardiovascular RRR, no murmur, no edema Gastrointestinal (Abdomen) normal bowel sounds, soft, nontender, no hepatosplenomegaly Results & Data Results & Data Laboratory Results . Diagnostic Findings . X-rays of the right knee reviewed. Shows advanced right knee tricompartment DJD. She got complete loss of medial joint space. She has osteophytes in all 3 compartments. PG Care Time/CCT Total # of Minutes Spent Total Time Spent with Patient: Total time spent is greater than 50% in coordination of care (as documented) at patient's floor/unit and/or counseling patient: Coding Level of Care Code None Diagnoses Right knee DJD M17.11 History of left knee replacement Z96.652 Lumbar spondylosis M47.816
[~2023-04-19 09:04] MED LIST changes: +BUPIVACAINE 0.5 % 5 MG/1 ML PF 10ML VIAL ONE; -LACTATED RINGER'S 1,000 ML IV SCH; -LIDOCAINE 2% MPF LOCAL 5 ML VIAL INFIL ONE; -LR 15ML/HR IV SCH; -ONDANSETRON INJ 2 MG/ML 2 ML VIAL ONE; -PROPOFOL IV EMULSION 10 MG/ML 20 ML VIAL IV ONE; +ROPIVACAINE 0.5% 5 MG/ML 30 ML VIAL ONE; -cefOXitin 2,000 MG in DEXTROSE 5% 50 ML IV SCH; -fentaNYL citrate 100 MCG/2 ML VIAL ONE
[2023-04-19] MEDS ORDERED: ATROPINE SULFATE 0.1 MG/ML 10ML SYR IV PRN (09:46)
[2023-04-19] MEDS ORDERED: fentaNYL citrate PF 100 MCG/2 ML VIAL IV PRN (09:46)
[2023-04-19] MEDS ORDERED: ONDANSETRON INJ 2 MG/ML 2 ML VIAL IV PRN ×2 (09:46→14:58)
[2023-04-19] MEDS ORDERED: ePHEDrine sulfate 50 MG/ML AMP IV PRN (09:46)
[2023-04-19] MEDS: FAMOTIDINE 20 MG TAB PO SCH (10:04)
[2023-04-19] MEDS: METOCLOPRAMIDE HCL 10 MG TABLET PO SCH (10:04)
[2023-04-19] MEDS: ACETAMINOPHEN 500 MG TAB PO SCH ×2 (10:04→16:10)
[2023-04-19] MEDS: LR 500ML BOLUS, THEN 15ML/HR IV SCH (10:05)
[2023-04-19] MEDS ORDERED: MIDAZOLAM HCL 1 MG/ML 2ML VIAL ONE (10:05)
[2023-04-19] MEDS ORDERED: fentaNYL citrate PF 100 MCG/2 ML VIAL ONE (10:05)
[2023-04-19] MEDS: dexAMETHasone**PF** 10 MG/ML VIAL IV SCH (10:05)
[2023-04-19] MEDS: LR 60ML/HR IV SCH (10:05)
[2023-04-19] MEDS: CeleBREX 200 MG CAP PO SCH (10:05)
[2023-04-19] MEDS ORDERED: PROPOFOL IV EMULSION 10 MG/ML 20 ML VIAL IV ONE ×2 (10:51)
--- NOTE | 2023-04-19 11:37 | History & Physical Bridge Note ---
Date of Service April 19, 2023 History & Physical Bridge Note I have examined the patient, reviewed the History & Physical and in the interval since the performance of the History & Physical I have noted the following changes of clinical significance: no changes noted
[2023-04-19] MEDS: ceFAZolin 2000MG 2,000 MG/15 ML SYR IV SCH (11:50)
[2023-04-19] MEDS: ROPIV 0.5% 246mg, Ketorolac 30mg, EPINEPHrine 0.5mg in NSS INFIL SCH (12:15)
[2023-04-19] MEDS: TRANEXAMIC ACID 1,000 MG **IV Intra-op IV SCH (12:41)
--- NOTE | 2023-04-19 13:38 | Operative Report ---
PG Post Operative Report Pre & Post Diagnosis Operation Date: 04/19/23 10:40 Pre-Op Diagnosis: Right Knee DJD Post-Op Diagnosis: Right Knee DJD I identified the patient and participated in the time-out.: Yes Procedure Operation Date: 04/19/23 10:40 Actual Procedures p Right Total Knee Arthroplasty(Right) - Mars Aguilar MD Surgeon Mars Aguilar MD It Application Architect Salvador Sterling PA-C Estimated Blood Loss 50 Findings Consistent with Post-Op Diagnosis Operative findings reveal advanced Right knee DJD. She had extensive grade 4 [id number] disease of the anteromedial compartment. She had a fixed varus deformity to her knee. Moderate-sized joint effusion. Slight flexion contracture of about 10 degrees. Specimens Right knee sent for pathology. Anesthesia Type Spinal MAC Complications none Disposition Accompanied Patient To Recovery: No Indications Patient is a 77-year-old female is a long history of knee problems. She had her left knee replaced about 10 years ago. She done well with this. Over the past several years she has developed increased pain discomfort in her right knee. X- rays show advanced right knee arthritis. She failed conservative measures. She elected proceed with total knee arthroplasty. Description of Procedure Operative implants consist of: 1. Biomet Vanguard size 62.5 right posterior stabilized femoral component. 2. Biomet size 67 tibial tray. 3. 10 mm post stabilized polyethylene insert. 4. 31 x 8 all poly patella. The patient was taken the op room, identified, placed on the operating table in the supine position. Contractors were properly padded. IV antibiotics tried by anesthesia team. A spinal anesthetic and adductor canal block had been provided in the holding area. A Gilliam catheter was placed in sterile fashion. Right Thigh-high tourniquet was then placed. The right lower extremities then prepped and draped in usual sterile fashion. The right leg was elevated and exsanguinated with use of an Esmarch and tourniquet placed at 3 mmHg. An anterior approach of the right knee was then performed to longitudinal incision centered over the patella. Sharp dissection Through subcutaneous is down the extensor mechanism. Medial parapatellar arthrotomy incision was made. Some subperiosteal dissection was carried out medially. The fat pad was resected from Neath patella tendon. Lateral pat ellofemoral ligament was released. Patella subluxated laterally and the knee was flexed. The osteophytes taken on distal femur. The ACL and PCL were then released from distal femur the tibia subluxated anteriorly. External tibial alignment jig was then placed the interface the tibia and adjusted about 10 mm medially. Proximal tibial cut was made essentially flush with the most deficient aspect the posterior medial tibial plateau. Some osteophytes were taken off medially. The tibia sized to a size 67. Attention drawn to the femur. The distal femur was then with a sharp drill. Intramedullary canal was suction. A right 5 degree valgus cutting guide was placed the distal femoral cutting block was pinned in place. Distal femoral cut was made to take an additional 3 mm of bone.The distal femoral cut was made. The femur was then sized to a size 62.5. The AP cutting block was pinned parallel to the epicondylar axis which was 4 degrees of external rotation. The anterior cut, anterior chamfer, posterior cut, posterior chamfer cuts were made to the box cutting guide was placed in the just slight lateral box cut was made. The knee was flexed. The remnants of the medial and lateral menisci were excised. The osteophytes taken off the posterior aspect the femur. Trial femoral component was placed. The tibial tray was pinned Cori external rotation and the drill and stem punch were used to create defect in proximal tibia for the tibial tray. Knee was then trialed and 10 mm insert fit most appropriately. Attention drawn to the patella. The patella was cleaned of all soft tissues. The patella thickness measured 21 mm in thickness was cut down to 13. Sized to a size 31 patella. The lug holes for 31 patella were then placed. The lateral osteophytes removed. Patella button was placed. Knee was taken through range of motion patella tracked nicely with no thumbs test. Attention drawn to place the permanent components. All trial components were removed. Bone plug was placed in the distal femur limit blood loss. Double batch Palacos G cement was mixed. Biomet Vanguard size 62.5 right posterior by femoral component, size 67 tibial tray, a 10 mm post stabilized polyethylene insert, and a 31 x 8 all poly patella then cemented in place. The knee was brought out into full extension till cement hardened. Final cement check was then performed. The pericapsular tissues were injected with total 100 cc ofJoint mix. The patient did receive 1 g tranexamic acid. The tourniquet was then let down for final tourniquet time of 54 minutes. Hemostasis assured use electrocautery. The wound was once again irrigated.The extensor Meclomen closed with combination 1 PDS suture #1 Vicryl suture in a [id number] fashion. Extensor Meclomen checked found to be intact through the subcutaneous tissues then closed with 2 Dexon suture in a buried erupted fashion skin was closed skin concha. Leg was then cleaned and dried and sterile dressing was Xeroform, 4 fours, sterile cast padding, Jaime bandage were applied. Patient then transferred to the recovery room in stable condition. Patient tolerated procedure well and there are no complications. Salvador Sterling, my physician physician assistant certified, was present for the entire procedure. His assistance was essential and required for appropriate patient positioning, prepping and draping, surgical exposure, performing the technical details of the operation, placement the implants, closure of the wound, and placement of the sterile bandage. I attest to the content of the Intraoperative Record and any orders documented therein. Any exceptions are noted below.
--- NOTE | 2023-04-19 13:57 | Anesthesiology Progress Note ---
Date of Service April 19, 2023 Anesthesia Post Procedure Vital Signs Vital Signs: Temp Pulse Pulse Resp BP Pulse Ox O2 Del Method 04/19/23 13:55 89 13 147/55 H 99 Room Air 04/19/23 13:45 94 H 19 141/55 H 99 Room Air 04/19/23 13:35 95 H 12 148/60 H 100 Room Air 04/19/23 13:28 97.5 F L 91 H 16 129/52 L 99 Room Air 04/19/23 09:40 97.9 F 71 20 179/76 H 99 Room Air Transfer of Care Handoff Completed per policy Notes Mental Status: alert / awake / arousable and participated in evaluation Patient Amnestic to Procedure: Yes Nausea / Vomiting: adequately controlled Pain: adequately controlled Airway Patency, RR, SpO2: stable & adequate BP & HR: stable & adequate Hydration State: stable & adequate Neuraxial Anesthesia: was administered and sensory block is resolving Anesthetic Complications: no major complications apparent and Pt Satisfied with anesthetic care
--- NOTE | 2023-04-19 14:01 | XRay Report ---
TWO VIEWS RIGHT KNEE CLINICAL HISTORY: Postoperative examination. FINDINGS: AP and crosstable lateral portable views of the right knee are obtained. A right knee arthr oplasty is in near anatomic alignment. There has been undersurface remodeling of the patella. No acut e fracture is seen. There are expected postoperative changes around the knee including skin clips, so ft tissue edema, and subcutaneous gas. IMPRESSION: Expected postoperative changes status post right knee arthroplasty. No acute fracture is seen. ACT 112: Negative or not required by law. Electronically signed by: Dagoberto Morton M.D. 04/19/2023 2:00 PM
[2023-04-19] MEDS ORDERED: NALOXONE HCL 0.4 MG/1 ML VIAL/CARP IV PRN (14:58)
[2023-04-19] MEDS ORDERED: METOCLOPRAMIDE HCL INJ 5 MG/ML 2 ML VIAL IV PRN (14:58)
[2023-04-19] MEDS ORDERED: oxyCODONE HCL IR 5 MG TAB (IMMEDIATE RELEASE) PO PRN (14:58)
[2023-04-19] MEDS ORDERED: NON-FORMULARY MEDICATION (Amoxicillin 500 mg Tablet) PO SCH (14:58)
[2023-04-19] MEDS ORDERED: MAGNESIUM HYDROXIDE SUSP 30 ML UDC PO PRN (14:58)
[2023-04-19] MEDS ORDERED: ALUMINUM/MAGNESIUM SUSP 30 ML UDC PO PRN (14:58)
[2023-04-19] MEDS ORDERED: bisacodyL 10 MG SUPP PR PRN (14:58)
[2023-04-19] MEDS ORDERED: HYDROmorphone INJ 0.5 MG/0.5 ML SYR IV PRN (14:58)
[2023-04-19] MEDS: ORTHO JOINT ANESTHETIC ONE (15:03)
[2023-04-19] MEDS: SODIUM CHLORIDE 0.9% 1,000 ML IV SCH (15:29)
[2023-04-19] MEDS ORDERED: BETAMETHASONE DIP AUG (DIPROLENE) 0.05% CR 15 GM TUBE EXT PRN (15:43)
[2023-04-19] MEDS: KETOROLAC TROMETHAMINE 15 MG/ML VIAL IV SCH (17:09)
[2023-04-19] MEDS: ASCORBIC ACID 500 MG TAB PO SCH (17:09)
[2023-04-19] MEDS: ceFAZolin 1000MG 1,000 MG/7.5 ML SYR IV SCH (20:18)
[2023-04-19] MEDS: TRANEXAMIC ACID / 0.7% NACL 1,000 MG/100 ML BAG IV SCH (20:18)
[2023-04-19] MEDS: ASPIRIN 81 MG ECTAB PO SCH (20:28)
[2023-04-19] MEDS: ATORVASTATIN 10 MG TAB PO SCH (20:28)
[2023-04-19] MEDS: SENNA 8.6 MG TAB PO SCH (20:29)
[2023-04-19] MEDS: DOCUSATE SODIUM 100 MG CAP PO SCH (20:29)
[2023-04-19] MEDS ORDERED: SENNA 8.6 MG TAB PO SCH (21:00)
[2023-04-20 06:54] LABS: Hematocrit (blood only) 32.9 % (37.0-47.0); Hemoglobin 11.5 g/dl (12.0-16.0); Mean Corpuscular Hemoglobin 29.5 pg (25.0-34.0); Mean Corpuscular Volume 84.4 fL (80.0-100.0); Mean Platelet Volume 11.8 fL (9.4-12.4); Platelet Count 164 K/uL (130-400); RDW Coefficient of Variation 12.1 % (11.5-14.5); RDW Standard Deviation 37.2 fL (36.4-46.3); White Blood Count 15.77 K/ul (4.8-10.8)
[2023-04-20 07:14] LABS: BUN Creatinine Ratio 19.8 (10-20); Calcium 8.9 mg/dl (8.6-10.3); Creatinine Clr Calc Pharmacy 41.6 ml/min; Est GFR (African American) 58.7 ml/min; Est GFR (Non-African American) 50.6 ml/min
[2023-04-20] MEDS: dexAMETHasone 10 MG in SYRINGE 0 ML IV SCH (07:45)
--- NOTE | 2023-04-20 08:06 | Surgery Progress Note ---
Date of Service April 20, 2023 Assessment & Plan (1) Status post right knee replacement: Plan: 77-year-old female postop day 1 from right knee replacement doing pretty well. Pain is controlled. She is neurologically intact. Hoping to go home today. Plan: 1. DVT prophylaxis including thigh-high teds, SCDs, aspirin twice a day. 2. PT/OT. Weight-bear as tolerated. Right total knee protocol. 3. Pain control doing okay with current pain regimen. 4. Disposition plan to discharge home with some home health. She has a host of family members that are can assist in her care. Admission and Anticipated Discharge Date Admission Date: April 19, 2023 Subjective 77-year-old female postop day 1 from right knee replacement. She is doing pretty well. Around too much pain yet. Had a good night. No chest pain or shortness of breath. Not feeling dizzy or lightheaded. Hoping to go home today. She says she is got lots of family to help take care of her. Physical Exam Physical Exam: Physical examination was a pleasant elderly female. Sitting up in her bedside chair looks comfortable. Examination of the right leg reveals the dressing be clean dry and intact. She can dorsiflex and plantarflex her foot appropriately. She can do a good straight leg raise. Respiratory: normal respiratory effort, lungs clear to auscultation Cardiovascular: RRR, no murmur, no edema Gastrointestinal (Abdomen): normal bowel sounds, soft, nontender, no hepatosplenomegaly Results & Data Vital Signs (Past 12 Hours) Vital Signs Temp Pulse Resp BP Pulse Ox O2 Del Method 04/20/23 08:03 36.5 C 74 16 148/64 H 98 Room Air 04/20/23 03:45 36.8 C 89 20 156/66 H 97 Room Air 04/19/23 23:48 36.9 C 87 18 158/74 H 97 Room Air 04/19/23 20:20 Room Air Laboratory Results Hemoglobin is 11.5 hematocrit 32.9. Electrolytes are stable. PG Care Time/CCT Total # of Minutes Spent Total Time Spent with Patient: Total time spent is greater than 50% in coordination of care (as documented) at patient's floor/unit and/or counseling patient: Coding Level of Care Code 74258 Post Operative Follow-Up Diagnoses Status post right knee replacement Z96.651
[2023-04-20] MEDS: MULTIVITAMIN TAB PO SCH (08:57)
[2023-04-20] MEDS: LORATADINE 10 MG TAB PO SCH (08:57)
[2023-04-20] MEDS: ESCITALOPRAM OXALATE 10 MG TAB PO SCH (08:57)
[2023-04-20] MEDS ORDERED: NON-FORMULARY MEDICATION (Multivitamin Tablet) PO SCH (09:00)
--- OUTSIDE RECORDS SUMMARY | 2023-04-20 13:24 | External Medical Summary | Continuity of Care Document ---
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 Name Role Phone Luis Hawthorne Primary Care Physician [phone] Encounter [facility] [id number] Date(s): 04/17/23 - 04/17/23 [facility] [address] [place] [id number] [address] Encounter Diagnosis Tinea unguium(Discharge Diagnosis) - 04/17/23 Diet-controlled diabetes mellitus(Discharge Diagnosis) - 04/17/23 Discharge Disposition: Home or Self Care Attending Physician: VANESSA Carrington Christina L Referring Physician: MD Hawthorne Juan Allergies, Adverse Reactions, Alerts Substance Reaction Severity Status formaldehyde topical Rash Active Allergy Not found in Search 1, 2, 3 scal lops, very sick rash Active 1Scallops,crabs 2component in derm cream [id number] Assessment and Plan Extracted from: Title:Follow Up Visit Author:VANESSA Carrington, Alex Rosenthal Date:04/17/23 1.Tinea unguium -Patient unable to provide self care to toenails due todiabetes - verbal consent obtained for debridement -Recommend toenail debridement -Patient had toenails of bilateral digits 1-5 debrided using nail nippers to tolerance, no bleeding noted -Patient instructed to use emery board to nails once per week -Patient had no ingrown toenails or infection noted -Patient is to follow up in6 months for treatment if needed in the future 2.Diet-controlled diabetes mellitus Immunizations Given and Recorded Vaccine Date Status Refusal Reason influenza virus vaccine, inactivated 02/07/23 Give n influenza virus vaccine, inactivated 01/11/20 Give n influenza virus vaccine, inactivated 02/10/19 Give n influenza virus vaccine, inactivated 12/26/15 Give n influenza virus vaccine, inactivated 12/20/14 Give n influenza virus vaccine, inactivated 12/16/13 Give n influenza virus vaccine, inactivated 12/08/12 Give n influenza virus vaccine, inactivated 02/04/12 Give n influenza virus vaccine, inactivated 12/15/10 Give n tetanus/diphtheria/pertuss, acel (Tdap) 01/03/22 G iven tetanus/diphtheria/pertuss, acel (Tdap) 02/04/12 G iven SARS-CoV-2 (COVID-19) mRNA BNT-162b2 vax 05/02/20 Recorded SARS-CoV-2 (COVID-19) mRNA BNT-162b2 vax 04/04/20 Recorded zoster vaccine, inactivated 07/01/18 Given zoster vaccine, inactivated 06/28/17 Given pneumococcal 13-valent vaccine 06/18/14 Given zoster vaccine live 01/09/13 Recorded pneumococcal 23-valent vaccine 06/05/10 Recorded tetanus toxoids-diphtheria, Td (Adult) 02/05/05 Re corded Medications amoxicillin Start: 02/07/23 10:40:00 EST, prior to dental appt. Start Date: 02/07/23 Status: Ordered Aspirin Low Strength Start: 11/23/13 10:08:00, 81 mg =, PO, Daily Start Date: 11/23/13 Status: Ordered atorvastatin 10 mg oral tablet Start: 04/05/22 12:52:00 EST, See Instructions, Disp# 90 tab, Refills: 3, TAKE 1 TABLET AT BEDTIME,Pharmacy: [facility] Start Date: 04/05/22 Status: Ordered betamethasone dipropionate, augmented 0.05% topical ointment Start: 11/10/21 13:09:00 EDT, 1 appl, topical, Daily, Disp# 50 g, Refills: 0, To rashs not in face or groin daily PRN, Pharmacy: [facility] Start Date: 11/10/21 Status: Ordered Claritin 10 mg oral tablet Start: 06/05/10 9:16:00, 10 mg = 1 tab, Daily, tab Start Date: 06/05/10 Status: Ordered estradiol 0.1 mg/g vaginal cream Start: 09/12/21 10:56:00 EDT Start Date: 09/12/21 Status: Ordered Glucosamine & Chondroitin with MSM Start: 06/05/10 9:17:00, 2 caps, Daily, tab, No Dosage Noted Start Date: 06/05/10 Status: Ordered ibuprofen 200 mg oral capsule Start: 06/28/21 10:25:00 EDT, 2 cap, PO, q6h, PRN: as needed for pain Start Date: 06/28/21 Status: Ordered Lexapro 10 mg oral tablet Start: 03/08/23 11:40:00 EST, 1 tab, PO, Daily, Disp# 30 tab, Refills: 5, Pharmacy: [id number] Start Date: 03/08/23 Status: Ordered MetroCream 0.75% topical cream Start: 10/31/22 10:27:00 EDT, 1 appl, topical, bid, Disp# 45 g, Refills: 3, To face twice a day Start Date: 10/31/22 Status: Ordered multivitamin Start: 09/08/18 13:21:00 EDT, 1 tab, PO, Daily Start Date: 09/08/18 Status: Ordered valACYclovir 1 g oral tablet Start: 12/04/21 15:55:00 EDT, See Instructions, Disp# 20 tab, Refills: 0, TAKE 2 TABLETS BY MOUTH FOR 1 DOSE. REPEAT IN 12 HOURS NEEDED FOR COLD SORES., Pharmacy: [id number] Start Date: 12/04/21 Status: Ordered Mental Status 04/17/23 Barriers to Learning one year None evide nt Mandatory Health Literacy Documentation Yes Health Literacy Communication Barriers N ever Primary Language Syriac Problem List Condition Confirmation Course Effective Dates Status H ealth Status Informant ALLERGIC RHINITIS Confirmed 06/05/10 Active Anxiety Confirmed Active ARTHRITIS Confirmed 06/05/10 Active Atherosclerosis of aorta 1 Confirmed Active ATOPIC DERMATITIS AND RELATED CONDITIONS 2 Confirmed 06/05/10 Active Diabetes Confirmed Active Diet-controlled diabetes mellitus Confirmed Active DiverticulOSIS Confirmed 06/05/10 Active Eczema Confirmed Active Family history of skin cancer 3 Confirmed Active First degree atrioventricular block Confirmed Active Pain in left foot Confirmed Active History of dermatitis Confirmed Active HEARING LOSS Confirmed Active History of actinic keratoses Confirmed Active Impaired fasting glucose Confirmed Active Ingrown toenail Confirmed Active Sore in nose Confirmed Active MIXED HYPERLIPIDEMIA Confirmed 06/05/10 Active Actinic keratoses Confirmed Active Tinea unguium Confirmed Active Pincer nail deformity Confirmed Active Renal insufficiency, mild Confirmed Active Rosacea Confirmed Active Senile hyperkeratosis Confirmed Active TINNITUS Confirmed Active 1See outside rad/study 01/12/21 12/26/20-CT Chest Findings:Mild atherosclerosis of thoracic aorta 2sees Dr. Goff 3father had scc on shoulder Diagnosis Diagnosis Type Effective Dates Health Status Cl inical Service Informant Tinea unguium Discharge Diagnosis 04/17/23 Diet-controlled diabetes mellitus Discharge Diagnosis 04/17/23 Procedures Procedure Date Related Diagnosis Body Site Status Knee arthroplasty 1 04/19/23 Compl eted Mammogram 2 09/24/22 Completed Cystocele 02/2022 Completed Mammogram Digital Screening 3 09/18/[address] of chest with contrast 4 12/26/20 Completed Chest X-ray 5 11/18/[address] of head 6 11/18/20 Completed CXR - Chest X-ray 7 11/18/20 Compl eted Mammogram - screening 8 09/14/20 C ompleted Bone density scan report 9 10/15/19 Completed Mammogram - screening 10 09/14/19 Completed Avulsion of nail 11 11/24/18 Compl eted Mammogram - screening 12 09/08/18 Completed Mammogram - screening 13 09/02/17 Completed Mammogram 14 08/29/16 Completed Nail avulsion of toe 05/24/16 Comp leted Mammogram - screening 15 08/17/15 Completed Shave biopsy of skin 02/22/15 Comp leted Shave biopsy 16 12/06/14 Completed Bone density scan 17 08/09/14 Comp leted Mammogram 18 08/04/14 Completed Colonoscopy 19 07/28/14 Completed XRAY Right middle finger 20 02/21/14 Completed Total knee replacement 04/10/13 Co mpleted Cataract extraction and inse rtion of intraocular lens 21 Completed Colonoscopy Completed Hysterectomy 22 Completed Left Inguinal Hernia Repair Completed Rectocele Completed 1RIght knee 2There is no mammographic evidence of malignancy. A 1 year screening mammogram is recommended 3There is no mammographic evidence of malignancy. A negative mammographic report should not delay biopsy if a clinically suggestive mass is present. 4Impression: 1. No acute intrathoracic abnormality. 2. Subcentimeter scattered bilateral solid pulmonary nodules measuring up to 3 mm are likely benign. 3. No adenopathy. 4. The previously questioned 1.9 cm nodule of the left upper lung is not present and was likely artifactual. 5Impression: No acute process. Ill-defined 1.9 cm nodular density left upper lung. This may represent summation density versus pulmonary nodule. Correlation with a nonemergent follow-up chest CT may be considered. 6No acute intracranial abnormality. 71. No acute process 2. Ill-defined 1.9 cm nodular density left upper lung. This may represent summation density vs. pulmonary nodule. Correlation with a nonemergent f/u chest CT may be considered. 8Impression: There is no mammographic evidence of malignancy. A 1 year screening mammogram is recommended. (09/15/2021) The patient will receive written notificaiton of the results. 9AP spine 2.4 Dual Femur 0.4 Major Osteoporotic 8.0% Hip 0.7% Population: [facility] 10There is no mammographic evidence of malignancy. A 1 year screening mammogram is recommended. The patient will receive written notification of the results. 11Nail avulsion Fall 2018 at [facility] [place] [place] 12Impression: The possible architectural distortion in the superior, posterior right breast needs additional evaluation. The patient will be called to schedule an appointment. 13Impression; There is no mammographic evidence of malignancy. A 1 yearr screening mammogram is recommended. The patient will receive written notification of the results. 14Normal 15There is no mammographic evidence of malignancy. A 1 year screening mammogram is recommended. The patient will receive written notification of the results. 16x2 17T-score -0.1 normal 18Cat 2- Benign Recommend 1 year f/u 19Impression: Diverticulosis in the sigmoid colon No specimens collected. Repeat colonoscopy in 10 years for screening purposes. 20Soft tissue sweeling w/in the right middle finger. No evidence for osteomyelitis dec 2005 and mar 2006 22for bleeding Social History Social History Type Response Smoking Status Never smoked cigaret sunday Sex Female Ortho Outpt Note * VANESSA Carrington, Adrianne Rosenthal: PERFORM Event Display: Ortho Outpt Note Authored Date: [id number] Chief Complaint nail care, left great toenail tender Primary Care Provider MD Christoph, Luis Subjective Patient is a very [id number] female presenting today forcare of her feet she has a history of ingrown toenails,has no acute concerns noted today she states will be having a knee replacement on Saturday. Review of Systems Anxiety hyperlipidemiaprediabetes dietcontrolled hearing lossatherosclerosis renal insufficiencymemory change Objective Physical Exam Problem focused bilateral feet: Vascular: Dorsalis pedis pulse palpable 1 out of 4, posterior tibial pulse palpable 1 out of 4 Pedal hair is noted to be present on both feet with capillary refill time less than 3 secondsskin turgor is noted to be good to all digits of both feet,no bilateral lower extremity swelling. Neurologic: Gross sensation and neurovascular status intact of both feetmonofilament intact to distal extremitiesno numbness burning or tingling noted. Orthopedic examination: No tenderness or discomfort noted on feetfull range of motion of all digits without discomfort Dermatologic examination: Toenails of digits 1 through 5 of bilateral feet with dystrophy, incurvation along medial and lateral nail border, thickening greater than 1 mm and pain recommend debridement Assessment/Plan 1.Tinea unguium -Patient unable to provide self care to toenails due todiabetes - verbal consent obtained for debridement -Recommend toenail debridement -Patient had toenails of bilateral digits 1-5 debrided using nail nippers to tolerance, no bleedingnoted -Patient instructed to use emery board to nails once per week -Patient had no ingrown toenails or infection noted -Patient is to follow up in6 months for treatment if needed in the future 2.Diet-controlled diabetes mellitus Electronic Signature on File Electronically Reviewed/Signed by: Adrianne Carrington DPM Author Signature Dt/Tm:04/17/2023 03:47 PM Division of Sports Medicine CLR Patient Care team information Care Team Personnel Name: MD Chavez William J Position: Provider - Terminated Member Role: Lifetime - never expires Address: Address: [address] [place] [address] [place] Name: MD Hawthorne Juan Position: Physician - Family Med Member Role: Primary Care Provider Address: Address: [address] [place] [id number] [place] Name: VANESSA Carrington, Adrianne Rosenthal Position: Physician - Podiatry Member Role: Lifetime Relationship Address: Address: [address] [address] [place] Care Team Related Persons Name: KIMBER PLASCENCIA
--- NOTE | 2023-04-23 06:27 | Discharge Summary ---
Date of Service April 23, 2023 Discharge Data Procedures Performed Operation Date: 04/19/23 10:40 Actual Procedures p Right Total Knee Arthroplasty(Right) - Mars Aguilar MD Hospital Course (1) Status post right knee replacement: This is a 77 year old patient admitted on 04/19/23 and underwent total knee arthroplasty. She tolerated the procedure well and there were no complications. Transferred to the PACU post op and later to the orthopedic floor for further care. She was given ancef for antibiotic prophylaxis. She was also given WILBER stockings, SCDs, and aspirin for DVT prophylaxis. Hemoglobin, hematocrit, and vital signs were monitored during her hospital stay and remained stable. Did not require any blood transfusions. There were no complications during her hospital stay. By post op day #1 the patient was tolerating a regular diet, pain was reasonably controlled with oral pain medicine, and she was participating in physical therapy. On post op day #1 the patient was discharged home and set up with home health care. She was given printed discharge instructions including prescriptions for extra strength tylenol, aspirin, cefadroxil, ketorolac, zofran, oxycodone, and senokot. Continue physical therapy, weight bearing as tolerated. Continue WILBER stockings. Follow up approximately 2 weeks post op or sooner if there are problems or concerns. Coding Level of Care Code None Diagnoses Status post right knee replacement Z96.651
== END 2023-04-20 12:33 | disposition home health service (06) ==
LOC: ASU 09:04 → 3N 09:04
DX: Z91.030 Bee allergy status; K21.9 Gastro-esophageal reflux disease without esophagitis; I10 Essential (primary) hypertension; Z88.8 Allergy status to other drugs, medicaments and biological substances; Z79.82 Long term (current) use of aspirin; M47.816 Spondylosis without myelopathy or radiculopathy, lumbar region; Z96.652 Presence of left artificial knee joint; Z79.899 Other long term (current) drug therapy; M17.11 Unilateral primary osteoarthritis, right knee